=== PATIENT | male | born 1965 | race Caucasian/White ===

== ENCOUNTER 2017-08-13 21:10 | Inpatient (IN) | payer BC ==
[~2017-08-13] VITALS: Ht 190.5 cm; Wt 83.0 kg
[~2017-08-13 21:10] MED LIST: BISA10SU12 RC; Benztropine Mesylate PO; CLON0.5T4 PO; DOCU50LI PO; Folic Acid PO; MIRT15TA7 PO; MULT1TAB73 PO; Olanzapine PO; Tramadol Hcl PO
[2017-08-13] MEDS ORDERED: IV NORMAL SALINE 1000 ML BAG IV ONE (21:30)
[2017-08-13 22:05] LABS: BASOPHILS % (AUTO) 0.5 % (0.0-2.0); EOSINOPHILS # (AUTO) 0.1 K/uL (0.0-0.7); EOSINOPHILS % (AUTO) 1.3 % (0.0-7.0); HEMATOCRIT 47.7 % (36.7-47.1); HEMOGLOBIN 16.4 g/dL (12.5-16.3); LYMPHOCYTES # (AUTO) 1.8 K/uL (20.0-40.0); MEAN CORPUSCULAR HEMOGLOBIN 29.6 uug (23.8-33.4); MEAN CORPUSCULAR HGB CONC 34 g/dL (32.5-36.3); MEAN CORPUSCULAR VOLUME 85.9 fL (73.0-96.2); MONOCYTES # (AUTO) 0.6 K/uL (2.0-10.0); MONOCYTES % (AUTO) 7.5 % (0.0-11.0); NEUTROPHILS # (AUTO) 5.9 K/uL (1.8-8.9); NEUTROPHILS % (AUTO) 69.7 % (38.5-71.5); PLATELET COUNT (AUTO) 248 K/uL (152-348); RED BLOOD CELL COUNT(AUTO) 5.56 MIL/uL (4.06-5.63); WHITE BLOOD COUNT (AUTO) 8.5 K/uL (3.6-10.2)
[2017-08-13 22:19] LABS: ETHANOL < 3 MG/DL (0-0)
[2017-08-13 22:44] LABS: ALANINE AMINOTRANSFERASE 78 U/L (16-63); ALKALINE PHOSPHATASE 62 U/L (50-136); ASPARTATE AMINOTRANSFERASE 48 U/L (15-37); BILIRUBIN,DIRECT 0.6 mg/dL (0.0-0.2); BILIRUBIN,TOTAL 2.5 mg/dL (0.2-1.0); CARBON DIOXIDE 23 mmol/L (21-32); CHLORIDE 119 mmol/L (98-107); CREATININE 1.3 mg/dL (0.6-1.3); GLUCOSE 97 mg/dL (74-106); POTASSIUM 3.5 mmol/L (3.5-5.1); TOTAL PROTEIN, SERUM 7.9 g/dL (6.4-8.2); UREA NITROGEN, BLOOD 41 mg/dL (7-18)
[2017-08-13 22:46] LABS: ACETAMINOPHEN < 2.0 ug/mL (10-30)
[2017-08-13 22:56] LABS: THYROID STIMULATING HORMONE 1.145 mIU/mL (0.358-3.740)
[2017-08-13 23:05] LABS: *BLOOD, URINE Trace-intact (NEGATIVE); *CLARITY,URINE CLEAR (CLEAR); *COLOR,URINE YELLOW (YELLOW); *KETONES,URINE 1+ (NEGATIVE); LEUKOCYTE ESTERASE ,URINE NEGATIVE (NEGATIVE); NITRITE, URINE NEGATIVE (NEGATIVE); UGLUCOSE NEGATIVE (NEGATIVE)
[2017-08-13 23:18] LABS: *AMPHETAMINE, URINE NEGATIVE (NEGATIVE); *BARBITURATE, URINE NEGATIVE (NEGATIVE); *CANNABINOID, URINE NEGATIVE (NEGATIVE); *COCCAINE, URINE NEGATIVE (NEGATIVE); *OPIATE, URINE NEGATIVE (NEGATIVE); *PHENCYCLIDINE SCREEN,URINE NEGATIVE (NEGATIVE)
[2017-08-13 23:27] LABS: *BILIRUBIN,URIN 1+ (NEGATIVE)
[2017-08-13 23:29] LABS: *PROTEIN,URINE 1+ (NEGATIVE)
[2017-08-13 23:39] LABS: BACTERIA,URINE NONE SEEN /HPF (NONE SEEN); RBC,URINE 0-3 /HPF (0-3); SQUAMOUS EPITHELIAL CELL,UR FEW /HPF (NONE SEEN); TRANSITIONAL EPI CELLS,URINE FEW /LPF (NONE SEEN); WBC,URINE 0-3 /HPF (0-3)
[2017-08-13 23:40] LABS: URINE AMORPHOUS URATE FEW /HPF
[2017-08-14] VITALS: BP 138/87
[2017-08-14] MEDS ORDERED: BISACODYL 10 MG SUPP.RECT RC PRN (01:30)
[2017-08-14] MEDS ORDERED: ONDANSETRON 4 MG/2 ML VIAL IV PRN (01:30)
[2017-08-14] MEDS ORDERED: POTASSIUM CHLORIDE 20 MEQ in IV D5 1/2 NS 1000 ML 1,000 ML IV PRN (01:30)
[2017-08-14] MEDS ORDERED: HYDROMORPHONE 1 MG/1 ML DISP.SYRIN IV PRN (01:30)
[2017-08-14] MEDS: LORAZEPAM 2 MG/1 ML VIAL IV PRN ×2 (01:36→09:58)
[2017-08-14] MEDS ORDERED: LORAZEPAM 2 MG/1 ML VIAL ONE (01:47)
[2017-08-14] MEDS ORDERED: IV D5W-0.45% NS +20 KCL 0 ML IV ONE (01:56)
[2017-08-14] MEDS ORDERED: IV D5W-0.45% NS +20 KCL 1,000 ML IV ONE (02:00)
[2017-08-14 05:54] VITALS: BP 115/80
[2017-08-14 06:41] LABS: BASOPHILS % (AUTO) 0.4 % (0.0-2.0); EOSINOPHILS # (AUTO) 0.1 K/uL (0.0-0.7); HEMATOCRIT 44.4 % (40-50); HEMOGLOBIN 14.9 G/DL (14.0-18.0); LYMPHOCYTES # (AUTO) 1.2 K/UL (0.8-4.8); LYMPHOCYTES % (AUTO) 12.2 % (20.5-51.5); MEAN CORPUSCULAR HEMOGLOBIN 29.2 UUG (27.0-31.0); MEAN CORPUSCULAR HGB CONC 34 g/dL (32.0-37.0); MEAN CORPUSCULAR VOLUME 86.9 FL (82.0-92.0); MONOCYTES # (AUTO) 0.7 K/UL (0.1-1.30); MONOCYTES % (AUTO) 7.4 % (0.0-11.0); PLATELET COUNT (AUTO) 247 K/UL (150-450); RED BLOOD CELL COUNT(AUTO) 5.11 MIL/UL (4.7-6.1)
[2017-08-14 06:49] LABS: BILIRUBIN,TOTAL 2.3 mg/dL (0.2-1.0); CREATININE 1.4 mg/dL (0.6-1.3); MAGNESIUM 2.9 mg/dL (1.8-2.4); PHOSPHOROUS 4.1 mg/dL (2.5-4.9); POTASSIUM 3.7 mmol/L (3.5-5.1); TOTAL PROTEIN, SERUM 7.4 g/dL (6.4-8.2)
[2017-08-14] MEDS ORDERED: HYDROMORPHONE 2 MG/1 ML DISP.SYRIN IV PRN (08:45)
[2017-08-14] MEDS: FAMOTIDINE. 20 MG/2 ML VIAL IV SCH (09:58)
[2017-08-14 11:44] LABS: THYROID STIMULATING HORMONE 0.955 mIU/mL (0.358-3.740)
[2017-08-14] MEDS ORDERED: TRAMADOL HCL PO PRN (12:00)
[2017-08-14 12:16] VITALS: BP 121/75
[2017-08-14] MEDS: BENZTROPINE MESYLATE 0.5 MG TABLET PO SCH ×2 (15:08→17:00)
[2017-08-14] MEDS: FOLIC ACID 1 MG TABLET PO SCH (15:08)
[2017-08-14] MEDS: MULTIVITAMINS,THERAPEUTIC TABLET PO SCH (15:09)
[2017-08-14] MEDS: OLANZAPINE 5 MG TABLET PO SCH (15:10)
[2017-08-14] MEDS: DOCUSATE SODIUM 100 MG CAPSULE PO SCH ×2 (15:11→21:20)
[2017-08-14 16:19] VITALS: BP 122/69
[2017-08-14] MEDS ORDERED: BENZTROPINE MESYLATE PO SCH (17:00)
[2017-08-14 20:00] VITALS: BP 99/63
[2017-08-14] MEDS ORDERED: OLANZAPINE PO SCH (21:00)
[2017-08-14] MEDS ORDERED: OLANZAPINE 5 MG TABLET PO SCH (21:00)
[2017-08-14] MEDS ORDERED: DOCUSATE SODIUM 100 MG/10 ML LIQUID UDC PO SCH (21:00)
[2017-08-14] MEDS: MIRTAZAPINE 15 MG TABLET PO SCH (21:21)
[2017-08-14] MEDS: IV DEXTROSE 5% 500 ML IV PRN (21:24)
[2017-08-14 23:16] LABS: *CREATININE,URINE 119.5 mg/dL (30-125); *URINE TOTAL PROTEIN RANDOM 18.6 mg/dL (<150/24HR)
[2017-08-14 23:27] LABS: *BLOOD, URINE 2+ (NEGATIVE); *CLARITY,URINE CLEAR (CLEAR); *COLOR,URINE YELLOW (YELLOW); *KETONES,URINE NEGATIVE (NEGATIVE); *PROTEIN,URINE NEGATIVE (NEGATIVE); LEUKOCYTE ESTERASE ,URINE NEGATIVE (NEGATIVE); NITRITE, URINE NEGATIVE (NEGATIVE); UGLUCOSE NEGATIVE (NEGATIVE)
[2017-08-14 23:39] LABS: *BILIRUBIN,URIN 1+ (NEGATIVE)
[2017-08-15 00:02] LABS: BACTERIA,URINE NONE SEEN /HPF (NONE SEEN); MUCUS,URINE FEW /LPF (0-FEW); SQUAMOUS EPITHELIAL CELL,UR FEW /HPF (NONE SEEN)
[2017-08-15] MEDS: IV DEXTROSE 5% 500 ML IV PRN ×2 (04:21→14:05)
[2017-08-15 05:37] VITALS: BP 98/57
[2017-08-15 06:46] LABS: BILIRUBIN,TOTAL 1.9 mg/dL (0.2-1.0); CREATININE 1.2 mg/dL (0.6-1.3); MAGNESIUM 2.4 mg/dL (1.8-2.4); PHOSPHOROUS 4.4 mg/dL (2.5-4.9); TOTAL PROTEIN, SERUM 5.8 g/dL (6.4-8.2)
[2017-08-15 07:01] LABS: BASOPHILS % (AUTO) 0.4 % (0.0-2.0); EOSINOPHILS # (AUTO) 0.2 K/uL (0.0-0.7); EOSINOPHILS % (AUTO) 3.1 % (0.0-7.0); LYMPHOCYTES % (AUTO) 30.8 % (20.5-51.5); MEAN CORPUSCULAR HEMOGLOBIN 29.5 uug (23.8-33.4); MEAN CORPUSCULAR HGB CONC 34 g/dL (32.5-36.3); MONOCYTES # (AUTO) 0.5 K/uL (2.0-10.0); MONOCYTES % (AUTO) 7.3 % (0.0-11.0); NEUTROPHILS # (AUTO) 3.7 K/uL (1.8-8.9); NEUTROPHILS % (AUTO) 58.4 % (38.5-71.5); RED BLOOD CELL COUNT(AUTO) 4.45 MIL/uL (4.06-5.63)
[2017-08-15 07:03] LABS: POTASSIUM 2.7 mmol/L (3.5-5.1)
[2017-08-15 07:10] LABS: HEMOGLOBIN 13.1 g/dL (12.5-16.3); WHITE BLOOD COUNT (AUTO) 6.4 K/uL (3.6-10.2)
[2017-08-15 07:11] LABS: HEMATOCRIT 38.7 % (36.7-47.1); PLATELET COUNT (AUTO) 167 K/uL (152-348)
[2017-08-15] MEDS ORDERED: POTASSIUM CHLORIDE 20 MEQ TAB.PRT.SR PO ONE (08:00)
[2017-08-15] MEDS ORDERED: POTASSIUM CHLORIDE 50 ML IV SCH (08:00)
[2017-08-15] MEDS ORDERED: VANCOMYCIN IV 1 G in PREMIXED 0 EACH IV ONE (08:00)
[2017-08-15] MEDS ORDERED: VANCOMYCIN IV 1 G in PREMIXED 0 EACH IV SCH (08:00)
[2017-08-15] MEDS ORDERED: Medication Not On Formulary EA (Multivitamins (Multivitamin) 1 EACH) PO SCH (09:00)
[2017-08-15] MEDS ORDERED: OLANZAPINE PO SCH (09:00)
[2017-08-15] MEDS ORDERED: POTASSIUM CHLORIDE 10 MEQ in IV DEXTROSE 5% 100 ML IV SCH (09:00)
[2017-08-15] MEDS ORDERED: Medication Not On Formulary EA ([Folic Acid] 1 MG) PO SCH (09:00)
[2017-08-15] MEDS: FOLIC ACID 1 MG TABLET PO SCH (09:17)
[2017-08-15] MEDS: MULTIVITAMINS,THERAPEUTIC TABLET PO SCH (09:17)
[2017-08-15] MEDS: DOCUSATE SODIUM 100 MG CAPSULE PO SCH ×3 (09:17→20:54)
[2017-08-15] MEDS: OLANZAPINE 5 MG TABLET PO SCH (09:18)
[2017-08-15] MEDS: FAMOTIDINE. 20 MG/2 ML VIAL IV SCH (09:18)
[2017-08-15] MEDS: BENZTROPINE MESYLATE 0.5 MG TABLET PO SCH ×2 (09:18→16:27)
[2017-08-15 11:04] VITALS: BP 93/60
[2017-08-15 12:23] VITALS: BP 104/62
[2017-08-15 15:10] VITALS: BP 104/59
[2017-08-15 15:25] VITALS: BP 97/62
[2017-08-15 20:00] VITALS: BP 100/71
[2017-08-15] MEDS: MIRTAZAPINE 15 MG TABLET PO SCH ×2 (20:47→20:54)
[2017-08-16] MEDS: IV DEXTROSE 5% 500 ML IV PRN ×2 (04:33→18:37)
[2017-08-16 04:44] VITALS: BP 102/63
[2017-08-16 07:27] LABS: BILIRUBIN,TOTAL 1.9 mg/dL (0.2-1.0); MAGNESIUM 2.1 mg/dL (1.8-2.4); PHOSPHOROUS 2.3 mg/dL (2.5-4.9); TOTAL PROTEIN, SERUM 6.3 g/dL (6.4-8.2)
[2017-08-16 07:32] LABS: BASOPHILS % (AUTO) 0.1 % (0.0-2.0); EOSINOPHILS # (AUTO) 0.1 K/uL (0.0-0.7); EOSINOPHILS % (AUTO) 0.8 % (0.0-7.0); HEMATOCRIT 39.1 % (40-50); HEMOGLOBIN 13.4 G/DL (14.0-18.0); LYMPHOCYTES # (AUTO) 0.8 K/UL (0.8-4.8); LYMPHOCYTES % (AUTO) 8.2 % (20.5-51.5); MEAN CORPUSCULAR HEMOGLOBIN 29.6 UUG (27.0-31.0); MEAN CORPUSCULAR HGB CONC 34 g/dL (32.0-37.0); MEAN CORPUSCULAR VOLUME 86.3 FL (82.0-92.0); MONOCYTES # (AUTO) 0.5 K/UL (0.1-1.30); MONOCYTES % (AUTO) 5.7 % (0.0-11.0); NEUTROPHILS % (AUTO) 85.2 % (38.5-71.5); PLATELET COUNT (AUTO) 181 K/UL (150-450); RED BLOOD CELL COUNT(AUTO) 4.53 MIL/UL (4.7-6.1); WHITE BLOOD COUNT (AUTO) 9.4 K/UL (4.0-11.2)
[2017-08-16] MEDS: MULTIVITAMINS,THERAPEUTIC TABLET PO SCH (08:59)
[2017-08-16] MEDS: DOCUSATE SODIUM 100 MG CAPSULE PO SCH ×3 (09:00→21:00)
[2017-08-16] MEDS: FOLIC ACID 1 MG TABLET PO SCH (09:00)
[2017-08-16] MEDS: BENZTROPINE MESYLATE 0.5 MG TABLET PO SCH ×2 (09:01→16:38)
[2017-08-16] MEDS: FAMOTIDINE. 20 MG/2 ML VIAL IV SCH (09:02)
[2017-08-16 11:12] VITALS: BP 100/64
[2017-08-16 12:05] LABS: A/G RATIO 1.5 (0.7-1.7); ALBUMIN 3.2 g/dL (2.9-4.4); ALPHA-1-GLOBULIN 0.2 g/dL (0.0-0.4); ALPHA-2-GLOBULIN 0.5 g/dL (0.4-1.0); BETA GLOBULIN 0.7 g/dL (0.7-1.3); GAMMA GLOBULIN 0.8 g/dL (0.4-1.8); GLOBULIN, TOTAL 2.2 g/dL (2.2-3.9); M-SPIKE Not Observed g/dL (Not Observed)
[2017-08-16 15:03] VITALS: BP 110/65
[2017-08-16] MEDS: NEUTRA PHOS PACKET PO ONE ×2 (16:15→16:38)
[2017-08-16] MEDS ORDERED: POTASSIUM CHLORIDE 20 MEQ TAB.PRT.SR PO ONE (17:15)
[2017-08-16 20:00] VITALS: BP 103/67
[2017-08-16] MEDS: MIRTAZAPINE 15 MG TABLET PO SCH ×2 (20:19→21:00)
[2017-08-16] MEDS: POTASSIUM CHLORIDE 20 MEQ TAB.PRT.SR PO ONE ×2 (20:20→21:02)
[2017-08-17 04:54] VITALS: BP 104/61
[2017-08-17] MEDS: IV D5W 1000ML 1,000 ML IV PRN ×2 (08:39→20:41)
[2017-08-17] MEDS: DOCUSATE SODIUM 100 MG CAPSULE PO SCH ×3 (08:47→21:00)
[2017-08-17] MEDS: BENZTROPINE MESYLATE 0.5 MG TABLET PO SCH ×2 (08:47→17:00)
[2017-08-17] MEDS: MULTIVITAMINS,THERAPEUTIC TABLET PO SCH (08:48)
[2017-08-17] MEDS: FAMOTIDINE 20 MG TABLET PO SCH (08:48)
[2017-08-17] MEDS: FOLIC ACID 1 MG TABLET PO SCH (08:48)
[2017-08-17 11:31] VITALS: BP 99/60
[2017-08-17 13:56] LABS: BASOPHILS % (AUTO) 0.7 % (0.0-2.0); EOSINOPHILS # (AUTO) 0.1 K/uL (0.0-0.7); EOSINOPHILS % (AUTO) 2.2 % (0.0-7.0); HEMATOCRIT 42.8 % (40-50); HEMOGLOBIN 14.1 G/DL (14.0-18.0); LYMPHOCYTES # (AUTO) 1.2 K/UL (0.8-4.8); LYMPHOCYTES % (AUTO) 20.6 % (20.5-51.5); MEAN CORPUSCULAR HEMOGLOBIN 28.5 UUG (27.0-31.0); MEAN CORPUSCULAR HGB CONC 33 g/dL (32.0-37.0); MEAN CORPUSCULAR VOLUME 86.5 FL (82.0-92.0); MONOCYTES # (AUTO) 0.4 K/UL (0.1-1.30); MONOCYTES % (AUTO) 7.4 % (0.0-11.0); NEUTROPHILS # (AUTO) 4.1 K/UL (1.8-8.9); NEUTROPHILS % (AUTO) 69.1 % (38.5-71.5); PLATELET COUNT (AUTO) 203 K/UL (150-450); RED BLOOD CELL COUNT(AUTO) 4.95 MIL/UL (4.7-6.1); WHITE BLOOD COUNT (AUTO) 5.8 K/UL (4.0-11.2)
[2017-08-17] MEDS ORDERED: POTASSIUM PHOSPHATE MM 7.5 MMOL in IV DEXTROSE 5% 100 ML IV SCH (14:00)
[2017-08-17 14:06] LABS: BILIRUBIN,TOTAL 1.6 mg/dL (0.2-1.0); CREATININE 0.9 mg/dL (0.6-1.3); MAGNESIUM 2.1 mg/dL (1.8-2.4); PHOSPHOROUS 2.2 mg/dL (2.5-4.9); POTASSIUM 3.5 mmol/L (3.5-5.1); TOTAL PROTEIN, SERUM 6.6 g/dL (6.4-8.2)
[2017-08-17] MEDS: POTASSIUM PHOSPHATE MM 7.5 MMOL in IV DEXTROSE 5% 100 ML IV SCH ×2 (14:59→18:08)
[2017-08-17 15:21] VITALS: BP 95/64
[2017-08-17] MEDS: OLANZAPINE ZYDIS 5 MG TAB.RAPDIS PO SCH (17:00)
[2017-08-17] MEDS: PHYTONADIONE 10 MG/1 ML AMPUL SQ ONE ×2 (20:00→20:29)
[2017-08-17 20:26] VITALS: BP 101/64
[2017-08-17] MEDS: MIRTAZAPINE 15 MG TABLET PO SCH ×2 (20:29→21:00)
[2017-08-18 04:00] VITALS: BP 104/70
[2017-08-18] MEDS: OLANZAPINE ZYDIS 5 MG TAB.RAPDIS PO SCH ×3 (08:19→17:33)
[2017-08-18] MEDS: BENZTROPINE MESYLATE 0.5 MG TABLET PO SCH ×2 (08:20→17:32)
[2017-08-18] MEDS: FOLIC ACID 1 MG TABLET PO SCH (08:20)
[2017-08-18] MEDS: FAMOTIDINE 20 MG TABLET PO SCH (08:20)
[2017-08-18] MEDS: DOCUSATE SODIUM 100 MG CAPSULE PO SCH ×3 (08:25→22:00)
[2017-08-18] MEDS: MULTIVITAMINS,THERAPEUTIC TABLET PO SCH (08:25)
[2017-08-18] MEDS: IV D5W 1000ML 1,000 ML IV PRN (09:51)
[2017-08-18 11:04] VITALS: BP 108/67
[2017-08-18] MEDS ORDERED: MAGNESIUM HYDROXIDE 30 ML LIQUID UDC PO ONE (13:15)
[2017-08-18] MEDS ORDERED: BISACODYL 10 MG SUPP.RECT RC ONE (13:15)
[2017-08-18] MEDS: IV D5 1/2 NS 1000 ML 1,000 ML IV PRN (14:05)
[2017-08-18 15:21] VITALS: BP 100/61
[2017-08-18 19:05] VITALS: BP 103/59
[2017-08-18] MEDS: MIRTAZAPINE 15 MG TABLET PO SCH ×2 (20:10→21:00)
[2017-08-18] MEDS ORDERED: DOCUSATE SODIUM 100 MG CAPSULE PO SCH (21:00)
[2017-08-19] MEDS: IV D5 1/2 NS 1000 ML 1,000 ML IV PRN ×2 (02:36→19:23)
[2017-08-19 06:21] VITALS: BP 109/64
[2017-08-19] MEDS: FAMOTIDINE 20 MG TABLET PO SCH ×2 (09:00→09:28)
[2017-08-19] MEDS: MULTIVITAMINS,THERAPEUTIC TABLET PO SCH ×2 (09:00→09:28)
[2017-08-19] MEDS: FOLIC ACID 1 MG TABLET PO SCH ×2 (09:00→09:28)
[2017-08-19] MEDS: DOCUSATE SODIUM 100 MG CAPSULE PO SCH ×2 (09:28→21:00)
[2017-08-19] MEDS: BENZTROPINE MESYLATE 0.5 MG TABLET PO SCH ×4 (09:28→17:52)
[2017-08-19] MEDS: OLANZAPINE ZYDIS 5 MG TAB.RAPDIS PO SCH ×4 (09:28→17:45)
[2017-08-19 11:23] VITALS: BP 105/63
[2017-08-19] MEDS ORDERED: HYDROCORTISONE 2.5 % RECTAL CREAM 28.35 GM TUBE RC PRN (13:15)
[2017-08-19 14:54] LABS: BASOPHILS % (AUTO) 0.8 % (0.0-2.0); EOSINOPHILS # (AUTO) 0.1 K/uL (0.0-0.7); EOSINOPHILS % (AUTO) 2.3 % (0.0-7.0); HEMATOCRIT 40.4 % (40-50); HEMOGLOBIN 13.4 G/DL (14.0-18.0); LYMPHOCYTES # (AUTO) 1.2 K/UL (0.8-4.8); LYMPHOCYTES % (AUTO) 22.3 % (20.5-51.5); MEAN CORPUSCULAR HEMOGLOBIN 28.6 UUG (27.0-31.0); MEAN CORPUSCULAR HGB CONC 33 g/dL (32.0-37.0); MEAN CORPUSCULAR VOLUME 86.5 FL (82.0-92.0); MONOCYTES # (AUTO) 0.5 K/UL (0.1-1.30); MONOCYTES % (AUTO) 9.1 % (0.0-11.0); NEUTROPHILS # (AUTO) 3.5 K/UL (1.8-8.9); NEUTROPHILS % (AUTO) 65.5 % (38.5-71.5); PLATELET COUNT (AUTO) 203 K/UL (150-450); RED BLOOD CELL COUNT(AUTO) 4.67 MIL/UL (4.7-6.1); WHITE BLOOD COUNT (AUTO) 5.3 K/UL (4.0-11.2)
[2017-08-19 15:00] LABS: BILIRUBIN,TOTAL 1.1 mg/dL (0.2-1.0); CREATININE 0.9 mg/dL (0.6-1.3); MAGNESIUM 2.1 mg/dL (1.8-2.4); PHOSPHOROUS 2.2 mg/dL (2.5-4.9); POTASSIUM 3.8 mmol/L (3.5-5.1); TOTAL PROTEIN, SERUM 6.4 g/dL (6.4-8.2)
[2017-08-19 15:25] VITALS: BP 107/71
[2017-08-19 20:24] VITALS: BP 115/70
[2017-08-19] MEDS: MIRTAZAPINE 15 MG TABLET PO SCH (21:00)
[2017-08-20] MEDS: LORAZEPAM 2 MG/1 ML VIAL IV PRN (01:53)
[2017-08-20 05:48] VITALS: BP 111/72
[2017-08-20] MEDS: FAMOTIDINE 20 MG TABLET PO SCH ×2 (09:00→09:47)
[2017-08-20] MEDS: BENZTROPINE MESYLATE 0.5 MG TABLET PO SCH ×3 (09:00→17:00)
[2017-08-20] MEDS: DOCUSATE SODIUM 100 MG CAPSULE PO SCH ×3 (09:00→20:32)
[2017-08-20] MEDS: FOLIC ACID 1 MG TABLET PO SCH ×2 (09:00→09:49)
[2017-08-20] MEDS: MULTIVITAMINS,THERAPEUTIC TABLET PO SCH ×2 (09:00→09:50)
[2017-08-20] MEDS: OLANZAPINE ZYDIS 5 MG TAB.RAPDIS PO SCH ×4 (09:00→17:44)
[2017-08-20] MEDS: IV D5 1/2 NS 1000 ML 1,000 ML IV PRN ×2 (09:20→22:10)
[2017-08-20 11:32] VITALS: BP 114/73
[2017-08-20 15:30] VITALS: BP 105/70
[2017-08-20 20:08] VITALS: BP 99/56
[2017-08-20] MEDS: MAGNESIUM HYDROXIDE 30 ML LIQUID UDC PO PRN (20:32)
[2017-08-21 04:57] VITALS: BP 98/65
[2017-08-21] MEDS: FAMOTIDINE 20 MG TABLET PO SCH (08:40)
[2017-08-21] MEDS: MULTIVITAMINS,THERAPEUTIC TABLET PO SCH (08:40)
[2017-08-21] MEDS: FOLIC ACID 1 MG TABLET PO SCH (08:40)
[2017-08-21] MEDS: OLANZAPINE ZYDIS 5 MG TAB.RAPDIS PO SCH ×3 (08:40→17:41)
[2017-08-21] MEDS: DOCUSATE SODIUM 100 MG CAPSULE PO SCH ×2 (08:40→20:21)
[2017-08-21] MEDS: TRAMADOL HCL 50 MG TABLET PO PRN (08:41)
[2017-08-21] MEDS: BENZTROPINE MESYLATE 0.5 MG TABLET PO SCH ×2 (08:41→17:41)
[2017-08-21 11:05] VITALS: BP 103/64
[2017-08-21] MEDS: IV D5 1/2 NS 1000 ML 1,000 ML IV PRN (11:27)
[2017-08-21 14:59] VITALS: BP 117/72
[2017-08-21 20:00] VITALS: BP 113/78
[2017-08-22] MEDS: IV D5 1/2 NS 1000 ML 1,000 ML IV PRN (05:38)
[2017-08-22 06:39] VITALS: BP 115/73
[2017-08-22] MEDS: DOCUSATE SODIUM 100 MG CAPSULE PO SCH ×2 (08:32→21:00)
[2017-08-22] MEDS: TRAMADOL HCL 50 MG TABLET PO PRN (08:33)
[2017-08-22] MEDS: BENZTROPINE MESYLATE 0.5 MG TABLET PO SCH ×2 (08:33→16:56)
[2017-08-22] MEDS: MULTIVITAMINS,THERAPEUTIC TABLET PO SCH (08:33)
[2017-08-22] MEDS: FOLIC ACID 1 MG TABLET PO SCH (08:33)
[2017-08-22] MEDS: OLANZAPINE ZYDIS 5 MG TAB.RAPDIS PO SCH ×3 (08:33→16:56)
[2017-08-22] MEDS: FAMOTIDINE 20 MG TABLET PO SCH (08:33)
[2017-08-22 10:07] VITALS: BP 121/79
[2017-08-22] MEDS: MAGNESIUM HYDROXIDE 30 ML LIQUID UDC PO PRN (17:02)
[2017-08-22 17:14] VITALS: BP 113/78
[2017-08-22 20:00] VITALS: BP 110/71
[2017-08-22] MEDS ORDERED: ACETAMINOPHEN 325 MG TABLET ONE (21:24)
[2017-08-22] MEDS: ACETAMINOPHEN 325 MG TABLET PO PRN (22:26)
[2017-08-22 23:30] LABS: CREATININE 1.1 mg/dL (0.6-1.3); POTASSIUM 3.8 mmol/L (3.5-5.1)
[2017-08-23 00:01] LABS: BASOPHILS % (AUTO) 0.4 % (0.0-2.0); EOSINOPHILS % (AUTO) 0.6 % (0.0-7.0); HEMOGLOBIN 13.9 G/DL (14.0-18.0); LYMPHOCYTES # (AUTO) 0.8 K/UL (0.8-4.8); LYMPHOCYTES % (AUTO) 11.2 % (20.5-51.5); MEAN CORPUSCULAR HEMOGLOBIN 29.5 UUG (27.0-31.0); MEAN CORPUSCULAR HGB CONC 34 g/dL (32.0-37.0); MEAN CORPUSCULAR VOLUME 86.6 FL (82.0-92.0); MONOCYTES # (AUTO) 0.3 K/UL (0.1-1.30); NEUTROPHILS # (AUTO) 5.7 K/UL (1.8-8.9); NEUTROPHILS % (AUTO) 82.8 % (38.5-71.5); PLATELET COUNT (AUTO) 202 K/UL (150-450); RED BLOOD CELL COUNT(AUTO) 4.73 MIL/UL (4.7-6.1); WHITE BLOOD COUNT (AUTO) 6.8 K/UL (4.0-11.2)
[2017-08-23] MEDS: LORAZEPAM 2 MG/1 ML VIAL IV PRN (00:15)
[2017-08-23 06:14] VITALS: BP 112/72
[2017-08-23] MEDS: DOCUSATE SODIUM 100 MG CAPSULE PO SCH ×2 (08:54→20:20)
[2017-08-23] MEDS: OLANZAPINE ZYDIS 5 MG TAB.RAPDIS PO SCH ×3 (08:55→17:31)
[2017-08-23] MEDS: FOLIC ACID 1 MG TABLET PO SCH (08:55)
[2017-08-23] MEDS: FAMOTIDINE 20 MG TABLET PO SCH (08:55)
[2017-08-23] MEDS: BENZTROPINE MESYLATE 0.5 MG TABLET PO SCH ×2 (08:55→17:31)
[2017-08-23] MEDS: MULTIVITAMINS,THERAPEUTIC TABLET PO SCH (08:55)
[2017-08-23 10:45] VITALS: BP 112/58
[2017-08-23] MEDS: ACETAMINOPHEN 325 MG TABLET PO PRN (10:52)
[2017-08-23] MEDS ORDERED: CLINDAMYCIN HCL 300 MG CAPSULE PO SCH (11:00)
[2017-08-23] MEDS: CLINDAMYCIN HCL 300 MG CAPSULE PO SCH ×4 (11:33→20:20)
[2017-08-23] MEDS: LACTOBACILLUS RHAMNOSUS GG 1 EACH CAPSULE PO SCH ×2 (11:34→20:20)
[2017-08-23 15:55] VITALS: BP 108/71
[2017-08-23 16:29] LABS: *BILIRUBIN,URIN NEGATIVE (NEGATIVE); *BLOOD, URINE NEGATIVE (NEGATIVE); *CLARITY,URINE CLEAR (CLEAR); *COLOR,URINE YELLOW (YELLOW); *KETONES,URINE NEGATIVE (NEGATIVE); *PROTEIN,URINE NEGATIVE (NEGATIVE); *UROBILINOGEN,URINE 0.2 E.U./dl (NORMAL); LEUKOCYTE ESTERASE ,URINE NEGATIVE (NEGATIVE); NITRITE, URINE NEGATIVE (NEGATIVE); PH,URINE 6.5 (5.0-8.0); UGLUCOSE NEGATIVE (NEGATIVE)
[2017-08-23 17:35] LABS: MUCUS,URINE MODERATE /LPF (0-FEW); WBC,URINE 0-3 /HPF (0-3)
[2017-08-23 20:30] VITALS: BP 113/66
[2017-08-23] MEDS: MAGNESIUM HYDROXIDE 30 ML LIQUID UDC PO PRN (22:31)
[2017-08-24 04:30] VITALS: BP 97/61
[2017-08-24 08:23] VITALS: BP 140/75
[2017-08-24] MEDS: CLINDAMYCIN HCL 300 MG CAPSULE PO SCH ×5 (09:04→20:03)
[2017-08-24] MEDS: OLANZAPINE ZYDIS 5 MG TAB.RAPDIS PO SCH ×4 (09:04→18:24)
[2017-08-24] MEDS: MULTIVITAMINS,THERAPEUTIC TABLET PO SCH (09:04)
[2017-08-24] MEDS: LACTOBACILLUS RHAMNOSUS GG 1 EACH CAPSULE PO SCH ×2 (09:04→20:03)
[2017-08-24] MEDS: FOLIC ACID 1 MG TABLET PO SCH (09:04)
[2017-08-24] MEDS: BENZTROPINE MESYLATE 0.5 MG TABLET PO SCH ×3 (09:04→18:23)
[2017-08-24] MEDS: FAMOTIDINE 20 MG TABLET PO SCH (09:04)
[2017-08-24] MEDS: DOCUSATE SODIUM 100 MG CAPSULE PO SCH ×2 (09:05→20:03)
[2017-08-24 11:14] VITALS: BP 119/65
[2017-08-24 15:08] VITALS: BP 99/63
[2017-08-24 20:00] VITALS: BP 97/62
== END 2017-08-24 22:50 | disposition home or self-care (01) | DRG 682 ==
LOC: ER 21:12 → TELE 23:35 → MED 08-14 19:47
PROVIDERS: ADMIT Internal Medicine; ATTEND Internal Medicine
DX: N17.0 Acute kidney failure with tubular necrosis (principal); G92 Toxic encephalopathy; D68.9 Coagulation defect, unspecified; D75.1 Secondary polycythemia; E83.41 Hypermagnesemia; E83.39 Other disorders of phosphorus metabolism; E87.0 Hyperosmolality and hypernatremia; E87.2 Acidosis; K62.5 Hemorrhage of anus and rectum; L03.114 Cellulitis of left upper limb; T82.7XXA Infection and inflammatory reaction due to other cardiac and vascular devices, implants and grafts, initial encounter; E86.0 Dehydration; F29 Unspecified psychosis not due to a substance or known physiological condition; E87.6 Hypokalemia; E88.09 Other disorders of plasma-protein metabolism, not elsewhere classified; K80.20 Calculus of gallbladder without cholecystitis without obstruction; Z91.19 Patient's noncompliance with other medical treatment and regimen; M54.10 Radiculopathy, site unspecified; K64.9 Unspecified hemorrhoids; F32.9 Major depressive disorder, single episode, unspecified; Z88.0 Allergy status to penicillin; Z88.2 Allergy status to sulfonamides; R74.0 Nonspecific elevation of levels of transaminase and lactic acid dehydrogenase [LDH]; I45.81 Long QT syndrome; M54.5 Low back pain; Z86.19 Personal history of other infectious and parasitic diseases; K59.00 Constipation, unspecified; K29.70 Gastritis, unspecified, without bleeding; K20.9 Esophagitis, unspecified; F43.10 Post-traumatic stress disorder, unspecified; D64.9 Anemia, unspecified; E04.2 Nontoxic multinodular goiter; K72.90 Hepatic failure, unspecified without coma; Y83.8 Other surgical procedures as the cause of abnormal reaction of the patient, or of later complication, without mention of misadventure at the time of the procedure; Y92.239 Unspecified place in hospital as the place of occurrence of the external cause
CPT/HCPCS: 36415; 70030-TC; 70450; 71010; 76700; 80307; 83605; 83690; 83735; 83970; 84100; 84155; 84156; 84165; 84300; 84443; 85025; 85730; 87040; 87077; 87086; 93005; 97116; 97530; A4663; C1758; G0480; G0480-TC; J2060; J3370; J3430; J3480; J3490; J7030; J7060; J7070